=== PATIENT | female | born 1960 | race Caucasian/White ===

== ENCOUNTER → 2016-11-04 | Day surgery (SDC) | payer OTHER ==
[~2016-11-04] MED LIST: AMARYL 2MG TABLE2 MG PO; CALCIUM 600 +1 EAC7 PO; CELEXA20 MG PO; CETIRIZINE HCL10 MG PO; HYDROCHLOROTHIA25 MG PO; MULTI-DAY VITA1 EACH PO; OMEPRAZOLE20 MG PO; PRAVASTATIN SOD10 MG PO; PROPRANOLOL HCL20 MG PO; QUETIAPINE FUMA50 MG PO; TIZANIDINE HCL2 MG PO
== END | disposition home or self-care (01) ==
LOC: OR 06:01
PROVIDERS: Internal Medicine Gastroenterology
PROC: 0DBP8ZZ Excision of Rectum, Via Natural or Artificial Opening Endoscopic (ICD-10-PCS; 2016-11-04)
PROC: 0DBL8ZZ Excision of Transverse Colon, Via Natural or Artificial Opening Endoscopic (ICD-10-PCS; 2016-11-04)
PROC: 0DBE8ZZ Excision of Large Intestine, Via Natural or Artificial Opening Endoscopic (ICD-10-PCS; 2016-11-04)
PROC: 0DBB8ZZ Excision of Ileum, Via Natural or Artificial Opening Endoscopic (ICD-10-PCS; principal; 2016-11-04 08:00)
DX: K63.5 Polyp of colon (principal); K62.1 Rectal polyp; K64.0 First degree hemorrhoids; K21.9 Gastro-esophageal reflux disease without esophagitis; I10 Essential (primary) hypertension; E11.9 Type 2 diabetes mellitus without complications; M54.9 Dorsalgia, unspecified; F41.9 Anxiety disorder, unspecified; F32.9 Major depressive disorder, single episode, unspecified; F17.210 Nicotine dependence, cigarettes, uncomplicated; Z86.19 Personal history of other infectious and parasitic diseases; Z82.49 Family history of ischemic heart disease and other diseases of the circulatory system; Z83.42 Family history of familial hypercholesterolemia; Z88.5 Allergy status to narcotic agent; Z88.8 Allergy status to other drugs, medicaments and biological substances; Z90.49 Acquired absence of other specified parts of digestive tract; Z90.710 Acquired absence of both cervix and uterus; Z98.890 Other specified postprocedural states
CPT/HCPCS: 82962; J7030